=== PATIENT | female | born 1955 | race Caucasian/White ===

== ENCOUNTER 2018-09-16 16:54 | Emergency (ER) | payer BC ==
[2018-09-16 17:12] VITALS: BP 134/97
--- NOTE | 2018-09-16 17:22 | UC ---
Complaint Female HPI - HPI Summary HPI Summary: Pt had a UTI 5 weeks ago and was given an inknow antibiotic for 5 days. She states she thinks she had complete resolution of the UTI but then over the past 2 days, she has developed burning on urination, urinary frequency and urgency. Denies any abnormal vaginal discharge and is not sexually active. - History Of Current Complaint Chief Complaint: UCGU Stated Complaint: URINARY Time Seen by Provider: 09/16/18 17:02 Hx Obtained From: Patient ?: No Onset/Duration: Gradual Onset Timing: Intermittent Severity Initially: Mild Severity Currently: Mild Pain Intensity: 2 Character: Burning Aggravating Factor(s): Urination Alleviating Factor(s): Other Associated Signs And Symptoms: Negative: Fever, Back Pain, Vaginal Bleeding/ Discharge, Vaginal Discharge, Nausea, Genital Swelling, Genital Blisters Related Hx: Similar Episode/Dx as: - UTI 5 weeks ago. - Allergies/Home Medications Allergies/Adverse Reactions: Allergies Allergy/AdvReac Type Severity Reaction Status Date / Time No Known Allergies Allergy Verified 09/16/18 17:12 PMH/Surg Hx/FS Hx/Imm Hx Previously Healthy: Yes Other GI/ History: UTI 5 weeks ago. - Surgical History Surgical History: Yes Surgery Procedure, Year, and Place: hysterectomy, bilateral cataracts, carpal tunnel surgery - Family History Known Family History: Positive: Hypertension Negative: Diabetes, Renal Disease - Social History Alcohol Use: None Substance Use Type: None Smoking Status (MU): Never Smoked Tobacco Review of Systems All Other Systems Reviewed And Are Negative: Yes Genitourinary: Positive: Dysuria, Frequency, Urgency. Negative: Vaginal/Penile Burning, Vaginal/Penile Itching, Vaginal/Penile Discharge, Vaginal/Penile Pain, Vaginal/Penile Tenderness Is Patient Immunocompromised?: No Physical Exam Triage Information Reviewed: Yes Appearance: Well-Appearing, No Pain Distress, Well-Nourished Vital Signs: Initial Vital Signs Temp 99.1 F 09/16/18 17:04 Pulse 64 09/16/18 17:04 Resp 16 09/16/18 17:04 BP 134/97 09/16/18 17:04 Pulse Ox 100 09/16/18 17:04 Vital Signs Reviewed: Yes Respiratory: Positive: Lungs clear, Normal breath sounds, No respiratory distress, No accessory muscle use Cardiovascular: Positive: RRR, No Murmur, Pulses Normal, Brisk Capillary Refill Abdomen Description: Positive: Nontender, No Organomegaly, Soft. Negative: CVA Tenderness (R), CVA Tenderness (L), Distended Bowel Sounds: Positive: Present Musculoskeletal Exam: Normal Neurological Exam: Normal Psychological Exam: Normal Skin Exam: Normal Complaint Female Dx - Course Course Of Treatment: Pt is symptomatic for a UTI although the urinalysis only shows blood. I am going to treat her with 7 days of Macrobid BID and will call with the urine culture results. I am also giving her pyridium to help with the spasm she is occasionally feeling. She is to follow up with PCP if no improvement and go to the ER if fever, chills, vomiting, back pain or worsening symptoms. Pt is not sexually active therefore I do not feel this is a RN NEONATAL issue. - Differential Dx/Diagnosis Provider Diagnosis: UTI (urinary tract infection) Discharge - Sign-Out/Discharge Documenting (check all that apply): Patient Departure All imaging exams completed and their final reports reviewed: No Studies - Discharge Plan Condition: Fair Disposition: HOME Prescriptions: Nitrofurantoin Monohyd/M-Cryst [Macrobid 100 mg Capsule] 100 mg PO BID 7 Days # 14 cap Phenazopyridine TAB* [Pyridium 100 mg TAB*] 100 mg PO TID 2 Days #6 tab Patient Education Materials: Urinary Tract Infection in Women (DC) Referrals: Rik Maldonado MD [Primary Care Provider] - Additional Instructions: We will call you with the urine culture results if the antibiotic needs to be changed or stopped. Follow up with your primary care provider in 3-4 days if no improvement. Go to the ER if you develop fever, chills, back pain, vomiting and unable to keep the medicine down. - Billing Disposition and Condition Condition: FAIR Disposition: Home
== END 2018-09-16 17:31 | disposition home or self-care (01) ==
LOC: UCCORT 16:54
DX: N39.0 Urinary tract infection, site not specified (principal)
CPT/HCPCS: 81003; 99212; G0463